=== PATIENT | male | born 1990 | race African-American/Black ===

== ENCOUNTER 2017-05-06 16:16 | Emergency (ER) | payer SELFPAY | END 2017-05-06 16:51 | disposition home or self-care (01) | LOC: ER 16:16 | DX: S00.262A Insect bite (nonvenomous) of left eyelid and periocular area, initial encounter (principal); H01.004 Unspecified blepharitis left upper eyelid; W57.XXXA Bitten or stung by nonvenomous insect and other nonvenomous arthropods, initial encounter; Y93.89 Activity, other specified; Y92.89 Other specified places as the place of occurrence of the external cause; Y99.8 Other external cause status | CPT/HCPCS: 99283 ==

== ENCOUNTER 2018-02-11 22:22 | Emergency (ER) | payer SELFPAY ==
[~2018-02-11] VITALS: Ht 167.6 cm; Wt 63.5 kg
[~2018-02-11 22:22] MED LIST: CETI10TA22 PO; ERYT1OIN6 OP; KETO5DRO4 EACHEYE; PRED50TA PO
[2018-02-11 22:55] VITALS: BP 109/76
[2018-02-12] MEDS ORDERED: DIPHTH,PERTUSS(ACELL),TET TOX 0.5 ML DISP.SYRIN. VAX IM ONE (00:15)
[2018-02-12] MEDS ORDERED: LIDOCAINE 1% PF 2 ML VIAL. INJ ONE (00:15)
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
== END 2018-02-12 01:45 | disposition home or self-care (01) ==
LOC: ER 22:22
DX: S51.811A Laceration without foreign body of right forearm, initial encounter (principal); S01.411A Laceration without foreign body of right cheek and temporomandibular area, initial encounter; S61.511A Laceration without foreign body of right wrist, initial encounter; W20.8XXA Other cause of strike by thrown, projected or falling object, initial encounter; Y93.89 Activity, other specified; Y92.89 Other specified places as the place of occurrence of the external cause; Y99.8 Other external cause status
CPT/HCPCS: 12004; 12011; 12014; 73090; 73110; 90471; 90715; 99284

== ENCOUNTER 2018-02-24 17:38 | Emergency (ER) | payer SELFPAY ==
[~2018-02-24] VITALS: Ht 167.6 cm; Wt 63.5 kg
[2018-02-24 17:50] VITALS: BP 111/72
--- NOTE | 2018-02-24 18:00 | PHYS DOC ---
Past Medical History Past Medical History: No Pertinent History Past Surgical History: No Surgical History Alcohol Use: None Drug Use: None Adult General Chief Complaint Chief Complaint: SUTURE/STAPLE REMOVAL [facility] Patient is a 27 year old male who presents with a need for suture removal. The patient has old healing lacerations to his right wrist and forearm. He states that they have been healing well with no complications. Review of Systems Review of Systems Constitutional: Denies fever or chills [] Respiratory: Denies cough or shortness of breath [] Cardiovascular: No additional information not addressed in HPI [] Musculoskeletal: Denies back pain or joint pain [] Integument: See history of present illness Neurologic: Denies headache, focal weakness or sensory changes [] Endocrine: Denies polyuria or polydipsia [] All other systems were reviewed and found to be within normal limits, except as documented in this note. Allergies Allergies Allergies Coded Allergies Type Severity Reaction Last Updated Verified No Known Drug Allergies 02/25/15 No Physical Exam Physical Exam Constitutional: Well developed, well nourished, no acute distress, non-toxic appearance. [] Cardiovascular:Heart rate regular rhythm, no murmur [] Lungs & Thorax: Bilateral breath sounds clear to auscultation [] Skin: A total of 10 sutures were removed from 2 well-healed lacerations with scabbing noted to both. The patient tolerated the procedure well. Neurologic: Alert and oriented X 3, normal motor function, normal sensory function, no focal deficits noted. [] Psychologic: Affect normal, judgement normal, mood normal. [] Current Patient Data Vital Signs Vital Signs Date Time Temp Pulse Resp B/P (MAP) Pulse Ox O2 Delivery O2 Flow Rate FiO2 02/24/18 17:50 98.5 65 16 111/72 (85) 100 Room Air 98.5 EKG EKG [] Radiology/Procedures Radiology/Procedures [] Course & Med Decision Making Course & Med Decision Making Pertinent Labs and Imaging studies reviewed. (See chart for details) [] Dragon Disclaimer Dragon Disclaimer This electronic medical record was generated, in whole or in part, using a voice recognition dictation system. Departure Departure Impression: Primary Impression: Visit for suture removal Disposition: 01 HOME, SELF-CARE Condition: STABLE Referrals: NO PCP (PCP) Patient Instructions: Suture Removal Additional Instructions: Follow-up with your primary care provider as needed. Do not scrub the skin while that is continuing to heal. If worsening return to the emergency department. JERRY BLACKWOOD APRN Feb 24, 2018 18:00
== END 2018-02-24 18:03 | disposition home or self-care (01) ==
LOC: ER 17:38
DX: S61.511D Laceration without foreign body of right wrist, subsequent encounter (principal); S51.811D Laceration without foreign body of right forearm, subsequent encounter; X58.XXXD Exposure to other specified factors, subsequent encounter
CPT/HCPCS: 99281

== ENCOUNTER 2019-08-22 11:33 | Emergency (ER) | payer SELFPAY ==
[~2019-08-22] VITALS: Ht 167.6 cm; Wt 66.0 kg
[~2019-08-22 11:33] MED LIST changes: -CETI10TA22 PO; +CETI10TA24 PO
[2019-08-22 11:38] VITALS: BP 150/88
[2019-08-22] MEDS ORDERED: LIDOCAINE 1% PF 2 ML VIAL. INJ ONE (12:15)
[2019-08-22] MEDS ORDERED: CEPH-264 PO (13:19)
--- NOTE | 2019-08-22 13:19 | PHYS DOC ---
Past Medical History Past Medical History: No Pertinent History Past Surgical History: No Surgical History Smoking Status: Never Smoker Alcohol Use: None Drug Use: None General Adult EDM: Chief Complaint: FOREIGNBODY EAR HPI: HPI: Patient is a 29 year old AA male who presents to the emergency department with complaints of a earring back being stuck in his right earlobe for the last month. Patient states that he had a screw back on the earring in his right ear that became embedded in his ear about a month ago. Patient was able to remove the stud from his ear but was unable to get the back out. He reports pain when he applies pressure to the area. He currently denies any pain at rest. He denies any pus drainage, redness, warmth, or fever. He states that the ear lobe is tender to touch. Patient's last tetanus shot was less than 2 years ago. Review of Systems: Review of Systems: Constitutional: Denies fever or chills. [] Eyes: Denies change in visual acuity. [] HENT: Denies nasal congestion or sore throat; see HPI. [] Respiratory: Denies cough or shortness of breath. [] Integument: Denies rash. [] Neurologic: Denies headache, focal weakness or sensory changes. [] Lymphatic: Denies swollen glands. [] Psychiatric: Denies depression or anxiety. [] Heart Score: Risk Factors: Risk Factors: DM, Current or recent (<one month) smoker, HTN, HLP, family history of CAD, obesity. Risk Scores: Score 0 - 3: 2.5% MACE over next 6 weeks - Discharge Home Score 4 - 6: 20.3% MACE over next 6 weeks - Admit for Clinical Observation Score 7 - 10: 72.7% MACE over next 6 weeks - Early Invasive Strategies Current Medications: Current Medications Medications (Trade) Dose Ordered Sig/Lore Start Time Stop Time Status Last Admin Dose Admin Lidocaine HCl (Xylocaine-Mpf 1% 2ml Vial) 2 ml 1X ONCE 08/22/19 12:15 08/22/19 12:16 DC 08/22/19 12:34 2 ML Allergies: Allergies: Allergies Coded Allergies Type Severity Reaction Last Updated Verified No Known Drug Allergies 02/25/15 No Physical Exam: PE: Constitutional: Well developed, well nourished, no acute distress, non-toxic appearance. [] HENT: Normocephalic, atraumatic, oropharynx moist, no oral exudates, nose normal; patient has visible metal foreign body embedded in right earlobe, mild erythema and edema to the affected area, no visible bleeding or pus drainage. Eyes: PERRLA, EOMI, conjunctiva normal, no discharge. [] Neck: Normal range of motion, no tenderness, supple, no stridor. [] Cardiovascular:Heart rate regular rhythm Lungs & Thorax:Respirations even and unlabored, no retractions, no respiratory distress Skin: Warm, dry Extremities: No cyanosis, no clubbing, ROM intact, no edema. [] Neurologic: Alert and oriented X 3, no focal deficits noted. [] Psychologic: Affect normal, judgement normal, mood normal. [] Current Patient Data: Vital Signs: Vital Signs Date Time Temp Pulse Resp B/P (MAP) Pulse Ox O2 Delivery O2 Flow Rate FiO2 08/22/19 11:38 97.9 95 12 150/88 (108) 97 Room Air 97.9 EKG: EKG: [] Radiology/Procedures: Radiology/Procedures: [] 1% lidocaine was injected at the base of the right ear for local block. An 11 blade scalpel was used to make a small incision over the posterior aspect of the patient's earlobe. A small yellow-colored metal foreign object was removed from the ear and given to the patient. A small amount of pus was expressed from the site. Minimal blood loss, patient tolerated procedure well. No complications. Course & Med Decision Making: Course & Med Decision Making Pertinent Labs and Imaging studies reviewed. (See chart for details) [] Dragon Disclaimer: Dragcontreras Disclaimer: This electronic medical record was generated, in whole or in part, using a voice recognition dictation system. Departure Departure Impression: Primary Impression: Foreign body of right ear lobe Qualified Codes: S00.451A - Superficial foreign body of right ear, initial encounter Disposition: HOME, SELF-CARE Condition: STABLE Referrals: NO PCP (PCP) Patient Instructions: Ear Foreign Body, [id number] Additional Instructions: Apply ice to the affected area as needed for comfort. He may take Tylenol or ibuprofen as needed for pain. Fill the prescription and use it as directed. Follow-up with your primary care doctor for wound recheck in 1 to 2 days. R eturn to the ER if you develop a fever or symptoms worsen. Scripts Cephalexin (KEFLEX) 500 Mg Capsule 500 MG PO QID for 7 Days, #28 CAP 0 Refills Prov: GEORGETTE HERRERA APRN 08/22/19 GEORGETTE HERRERA APRN Aug 22, 2019 13:19
== END 2019-08-22 13:29 | disposition home or self-care (01) ==
LOC: ER 11:33
DX: S00.451A Superficial foreign body of right ear, initial encounter (principal); L53.9 Erythematous condition, unspecified; R60.0 Localized edema; W45.8XXA Other foreign body or object entering through skin, initial encounter; Y93.89 Activity, other specified; Y92.89 Other specified places as the place of occurrence of the external cause; Y99.8 Other external cause status
CPT/HCPCS: 69200; 99285; J3490

== ENCOUNTER 2019-11-14 11:18 | Emergency (ER) | payer SELFPAY ==
[~2019-11-14] VITALS: Ht 165.1 cm; Wt 63.6 kg
[~2019-11-14 11:18] MED LIST changes: +CEPH-264 PO
[2019-11-14 11:40] VITALS: BP 118/63
[2019-11-14] MEDS ORDERED: ERYT1OIN6 OP (12:15)
--- NOTE | 2019-11-14 12:16 | PHYS DOC ---
Past Medical History Past Medical History: No Pertinent History Past Surgical History: No Surgical History Smoking Status: Never Smoker Alcohol Use: None Drug Use: None General Adult EDM: Chief Complaint: EYE PROBLEMS HPI: HPI: Patient is a 29 year old male who presents with swollen red, itchy right eye lid with discharge. Denies vision changes, injury, foreign body, pain with eye movements or eye pain, fever, nasal congestion, headache, dizziness. Patient states he has been using warm compresses. Redness and swelling along the upper eye lashes. clear discharge. Denies any tenderness with examination. Review of Systems: Review of Systems: Constitutional: Denies fever or chills. [] Eyes: Denies change in visual acuity. Discharge, itching and swelling to right eye lid.[] HENT: Denies nasal congestion or sore throat. [] Respiratory: Denies cough or shortness of breath. [] Cardiovascular: Denies chest pain or edema. [] GI: Denies abdominal pain, nausea, vomiting, bloody stools or diarrhea. [] : Denies dysuria. [] Musculoskeletal: Denies back pain or joint pain. [] Integument: Denies rash. Redness and swelling to right eye lid. [] Neurologic: Denies headache, focal weakness or sensory changes. [] Endocrine: Denies polyuria or polydipsia. [] Lymphatic: Denies swollen glands. [] Psychiatric: Denies depression or anxiety. [] Heart Score: Risk Factors: Risk Factors: DM, Current or recent (<one month) smoker, HTN, HLP, family history of CAD, obesity. Risk Scores: Score 0 - 3: 2.5% MACE over next 6 weeks - Discharge Home Score 4 - 6: 20.3% MACE over next 6 weeks - Admit for Clinical Observation Score 7 - 10: 72.7% MACE over next 6 weeks - Early Invasive Strategies Allergies: Allergies: Allergies Coded Allergies Type Severity Reaction Last Updated Verified No Known Drug Allergies 02/25/15 No Physical Exam: PE: Constitutional: Well developed, well nourished, no acute distress, non-toxic appearance. [] HENT: Normocephalic, atraumatic, bilateral external ears normal, oropharynx moist, no oral exudates, nose normal. [] Eyes: PERRLA, EOMI, conjunctiva normal, clear discharge, eye lid redness. [] Neck: Normal range of motion, no tenderness, supple, no stridor. [] Cardiovascular:Heart rate regular rhythm, no murmur [] Lungs & Thorax: Bilateral breath sounds clear to auscultation [] Abdomen: Bowel sounds normal, soft, no tenderness, no masses, no pulsatile masses. [] Skin: Warm, dry, no erythema, no rash. Eye lid redness and swelling to upper eyelid. [] Back: No tenderness, no CVA tenderness. [] Extremities: No tenderness, no cyanosis, no clubbing, ROM intact, no edema. [] Neurologic: Alert and oriented X 3, normal motor function, normal sensory function, no focal deficits noted. [] Psychologic: Affect normal, judgement normal, mood normal. [] Current Patient Data: Vital Signs: Vital Signs Date Time Temp Pulse Resp B/P (MAP) Pulse Ox O2 Delivery O2 Flow Rate FiO2 11/14/19 11:40 98.4 56 18 118/63 (81) 98 Room Air 98.4 EKG: EKG: [] Radiology/Procedures: Radiology/Procedures: [] Course & Med Decision Making: Course & Med Decision Making Pertinent Labs and Imaging studies reviewed. (See chart for details) PERRLA. See HPI. Clear discharge. Conjunctiva clear and no redness. Patient can follow up with a primary care physician or a eye doctor if needed. [] Kathleen Disclaimer: Kathleen Disclaimer: This electronic medical record was generated, in whole or in part, using a voice recognition dictation system. Departure Departure Impression: Primary Impression: Blepharitis of eyelid of right eye Qualified Codes: H01.001 - Unspecified blepharitis right upper eyelid Disposition: HOME, SELF-CARE Condition: STABLE Referrals: NO PCP (PCP) Patient Instructions: Blepharitis, [id number] Additional Instructions: Use medication as prescribed. Follow up with a eye doctor or a primary care physician if needed. Scripts Erythromycin Base (Erythromycin) 1 Gm Oint...g. 1 GM OP QID for 10 Days, #1 MISC Prov: ISSA STANLEY APRN 11/14/19 Justicifation of Admission Dx: Justifications for Admission: Justification of Admission Dx: N/A ISSA STANLEY APRN Nov 14, 2019 12:16
== END 2019-11-14 12:27 | disposition home or self-care (01) ==
LOC: ER 11:18
DX: H01.001 Unspecified blepharitis right upper eyelid (principal); R60.0 Localized edema
CPT/HCPCS: 99283